=== PATIENT | male | born 1985 | race Caucasian/White ===

== ENCOUNTER 2019-04-08 19:30 | Emergency (ER) | payer OTHER ==
[~2019-04-08] VITALS: Ht 182.9 cm; Wt 99.8 kg
[2019-04-08] MEDS ORDERED: KEFLEX500 M1 PO ×2 (20:01→20:02)
[2019-04-08 21:00] VITALS: BP 133/86
== END 2019-04-08 21:00 | disposition home or self-care (01) ==
LOC: M.ERS 19:30
DX: S61.210A Laceration without foreign body of right index finger without damage to nail, initial encounter (principal); W26.0XXA Contact with knife, initial encounter; Y93.89 Activity, other specified; Y92.89 Other specified places as the place of occurrence of the external cause; Y99.8 Other external cause status